=== PATIENT | male | born 1935 | race Caucasian/White ===

== ENCOUNTER 2019-09-18 16:54 | Inpatient (IN) | payer MEDICARE ==
[~2019-09-18 16:54] MED LIST: Iopamidol 370 76% 100 ML VIAL ONE
--- NOTE | 2019-09-18 17:23 | RAD ---
EXAM: CHEST ONE VIEW HISTORY: Chest pain. Right-sided pain. COMPARISON: None FINDINGS: Postsurgical changes related to CABG are noted. The cardiac silhouette and pulmonary vasculature are within normal limits. Linear bibasilar densities are seen which may be related to mild bibasilar atelectasis and/or scarring. No consolidation or pleural fluid is seen. Vascular calcifications are s een in the thoracic aorta with vascular calcifications overlying the expected location of the subclavian and axillary arteries. Osseous structures are intact. IMPRESSION: 1. No acute cardiopulmonary process. 2. Bibasilar atelectasis and/or scarring.
[2019-09-18 18:23] LABS: #Eosinphils 0.1 thou/uL (0.0-0.7); #Lymphocytes 1.5 thou/uL (1.20-3.40); #Monocytes 0.6 thou/uL (0.11-0.59); %Basophils 0.1 % (0.0-1.0); %Eosinophils 1.2 % (0.0-10.0); %Lymphocytes 14.9 % (21.0-51.0); %Monocytes 5.4 % (0.0-10.0); %Neutrophils 78.3 % (42.0-75.0); Hemoglobin 10.3 g/dL (14.0-18.0); Mean Corpuscular HGB CONC 31.9 g/dL (32.0-36.0); Mean Corpuscular Hemoglobin 27.9 pg (27.0-31.0); Mean Corpuscular Volume 87.4 fL (78.0-98.0); Mean Platelet Volume 8.3 fL (7.4-10.4); Platelet Count 217 thou/uL (130-400); Red Blood Cell (RBC) Count 3.71 mill/uL (4.70-6.10); White Blood Cell (WBC) Count 10.2 thou/uL (4.8-10.8)
[2019-09-18] MEDS ORDERED: Ketorolac Tromethamine 30 MG/ML VIAL ONE (18:25)
[2019-09-18] MEDS ORDERED: Morphine 4 MG/ML VIAL ONE ×3 (18:25→20:05)
--- NOTE | 2019-09-18 18:27 | RAD ---
RIGHT TIBIA AND FIBULA TWO VIEWS: 09/18/19 HISTORY: Right sided tib/fib pain. Intramedullary rods stabilizes the distal fibular shaft fracture in place. Also a plate and screws al mihir the distal fibula. There is lucency seen along the proximal fibular shaft which represents a nond isplaced fracture. IMPRESSION: Acute appearing nondisplaced proximal fibular shaft fracture. POS: [facility]
[2019-09-18 18:43] LABS: ALT (SGPT) 36 U/L (8-55); AST (SGOT) 35 U/L (5-34); Albumin 3.2 g/dL (3.4-4.8); Alkaline Phosphatase 123 U/L (40-110); Anion Gap 14 mmol/L (10-20); BUN (Urea Nitrogen) 48 mg/dL (8.4-25.7); Bilirubin, Total 0.5 mg/dL (0.2-1.2); CK (CPK) 28 U/L (30-200); Calc. Creatinine Clearance 0 mL/min (70-130); Calcium 8.4 mg/dL (7.8-10.44); Carbon Dioxide 25 mmol/L (23-31); Chloride 107 mmol/L (98-107); Estimated GFR-MDRD 42; Globulin 3.2 g/dL (2.4-3.5); Glucose 155 mg/dL (83-110); Potassium 4.3 mmol/L (3.5-5.1); Protein, Total 6.4 g/dL (5.8-8.1); Sodium 142 mmol/L (136-145)
[2019-09-18 19:03] LABS: CKMB 1.3 ng/mL (0-6.6)
[2019-09-18] MEDS ORDERED: Enoxaparin Sodium 80 MG/0.8 ML SYRINGE ONE (19:19)
[2019-09-18] MEDS ORDERED: Enoxaparin Sodium 100 MG/ML SYRINGE ONE (19:20)
[2019-09-18] MEDS ORDERED: Aspirin Chewable 81 MG TAB ONE ×2 (19:21→19:22)
--- NOTE | 2019-09-18 19:22 | ULT ---
RIGHT LOWER EXTREMITY VENOUS DOPPLER WITH SPECTRAL ANALYSIS AND COLOR FLOW EVALUATION: 09/18/19 HISTORY: Right lower extremity swelling and pain. Recent right lower extremity surgery. FINDINGS: Lin scale, color flow, Doppler evaluation, with spectral analysis of the right lower extremity venou s structures is performed with T2 imaging. The right lower extremity common femoral, superficial femo ral, popliteal, posterior tibial, most proximal greater saphenous and profunda femoral veins are imag ed. There is increased luminal echogenicity and decreased lumen compressibility as well as diminished cristhian w in the right common femoral vein compatible with nonocclusive DVT. There is decreased lumen tyler sibility and absence of flow within the proximal left superficial femoral vein suggesting an occlusiv e DVT at this level. The remaining visualized deep venous structures left lower extremity demonstrate normal luminal compr essibility and flow. IMPRESSION: 1. Occlusive thrombus proximal right superficial femoral vein with nonocclusive thrombus in the right lower extremity common femoral vein just below the junction of the common femoral vein and grea ter saphenous vein junction. 2. Dr. Lam was aware of these findings, and CT angiogram of the thorax was requested for maria del carmen luation of pulmonary embolus. POS: [facility]
--- NOTE | 2019-09-18 19:36 | CT ---
CT ANGIOGRAM THORAX WITH IV CONTRAST AND 3D RECONSTRUCTIONS: 09/18/19 HISTORY: Right lower extremity DVT. History of fracture right tibia and fibula one month ago post ORIF. Patien t has chest pain and shortness of breath. COMPARISON: None. FINDINGS: There are filling defects seen within bilateral upper and lower lobe subsegmental pulmonary arteries as well as involving a right lower lobe segmental and subsegmental pulmonary arteries compatible with bilateral pulmonary emboli more extensive in the right lower lobe. Postsurgical changes related to CABG are noted. The heart is at the upper limits of normal in size. V ascular calcifications are seen in the coronary arteries as well as involving the thoracic aorta. The thoracic aorta is normal in caliber without evidence of an aortic dissection. Mediastinal structures otherwise have a normal appearance and there is no evidence of lymphadenopathy . A small right pleural effusion and passive atelectasis is present. There is mild consolidation presen t at the left lung base, also likely attributable to atelectasis as opposed to pneumonia or aspirati on pneumonitis. A fluid attenuation cystic structure seen in the posterior aspect dome of the liver m easuring 10 mm with a few additional tiny nodular densities seen within the dome of the liver statist ically likely representing cysts. There is a small calculus seen within the gallbladder lumen. There is calcification of the anterior longitudinal ligament with degenerative changes in the spine. IMPRESSION: 1. Bilateral pulmonary emboli, more extensive in the right lower lobe. 2. Small right pleural effusion and associated passive atelectasis. 3. Parenchymal densities and mild consolidation left lung base probably attributable to atelecta sis as opposed to aspiration pneumonitis or pneumonia. 4. Extensive vascular calcifications. 5. Postsurgical changes related to CABG. 6. Cholelithiasis. 7. Hypodense lesions in the liver likely related to cysts. 8. Too small to characterize and incompletely imaged hypodense lesion superior pole left kidney. 9. Above findings concerning bilateral pulmonary emboli were discussed with Dr. Lam in the E mergency Department on 09/18/19 at 1917 hours. POS: [facility]
[2019-09-18] MEDS ORDERED: Ondansetron ODT 4 MG TAB SL PRN (21:16)
[2019-09-18] MEDS ORDERED: Sodium Chloride 0.9% 1,000 ML IV SCH (21:16)
[2019-09-18] MEDS ORDERED: Acetaminophen 325 MG TAB PO PRN (21:16)
[2019-09-18] MEDS ORDERED: HYDROcodone/Acetaminophen 5/325 mg Tablet PO PRN ×4 (21:16→23:05)
[2019-09-18] MEDS ORDERED: Ondansetron PF 4 MG/2 ML Vial IVP PRN ×2 (21:16→23:05)
--- NOTE | 2019-09-18 22:50 | PDOC.HHP ---
Hospitalist HPI - History of Present Illness Right leg pain and SOB History of Present Illness: Mr. Perez presents with severe right leg pain, found to have a recurring fracture involving the right tib/fib. Deneis any trauma. States the pain was not present yesterday and he woke up with it. He was noted to have swelling which prompted a venous doppler which revealed a DVT involving the right lower leg. He had a CTA chest done demonstrated bilateral PEs. Patient states he has not had any chest pain but has been short of breath since going home from rehab 3-4 weeks ago. States he had been placed on oxygen since he was admitted there and was told he would need oxygen on discharge but it was never arranged. Apparently he had sats of 93% on RA, however patient states he has always been in that range due to COPD. Of note he was previously on Xarelto for afib, started when he lived in [place] however due to cost he stopped it on his own several months ago. Patient reports a history of GI bleeds in the past due to gastritis/gastric ulcers >30 years ago, but did not have any GI bleeding while on Xarelto. He had a grade 1 open right tibia/fibula fracture in 07/2019, with intramedullary nail stabilization of the right tibia and irrigation/debridement of the right open tibia, done by Dr. Hooper on 08/14/19. ED Course: In the ED he had an EKG showing first degree AV Block, HR 97, complete right bundle branch block. Right tib/fib xray showed an acute appearing nondisplaced proximal fibular shaft fracture. Venous doppler of the right leg showed an occlusive thrombus proximal right superficial femoral vein with noncclusive thrombus in the right lower extremity common femoral vein below the junction of the common femoral vein and greater saphenous vein junction. CXR showed no acute cardiopulmonary process. Bibasilar atelectasis and/or scarring present. CTA showed bilateral PEs, more extensive in the right lower lung. Small right pleural effusion with associated passive atelectasis. Parenchymal densities and mild consolidation at the left lung base attributed to atelectasis. Extensive vascular calcifications. Post CABG changes and cholelithiasis. Also noted were hypodense lesions in the liver, felt to be related to cysts and too small to characterize hypodense lesion involving the superior pole of the left kidney. For pain he was given Toradol and a total of 8 mg of Morphine. Also given 324 mg of aspirin, 1 L of normal saline and started on Lovenox 1 mg/ kg. Hospitalist ROS - Review of Systems Constitutional: reports: malaise. denies: fever, chills, sweats, weakness, other Eyes: denies: pain, vision change, conjunctivae inflammation, eyelid inflammation, redness, other ENT: denies: ear pain, ear discharge, nose pain, nose discharge, nose congestion , mouth pain, mouth swelling, throat pain, throat swelling, other Respiratory: reports: shortness of breath (much improved since arriving to ED.) . denies: cough, dry, hemoptysis, SOB with excertion, pleuritic pain, sputum, wheezing, other Cardiovascular: denies: chest pain, palpitations, orthopnea, paroxysmal noc. dyspnea, edema, light headedness, other Gastrointestinal: reports: constipation. denies: nausea, vomiting, abdominal pain, diarrhea, melena, hematochezia, other Genitourinary: denies: dysuria, frequency, incontinence, hematuria, retention, other Musculoskeletal: reports: other (right leg pain and swelling) Skin: denies: rash, lesions, janette, bruising, other Neurological: denies: weakness, numbness, incoordination, change in speech, confusion, seizures, other - Medication Medications: Active Medications Generic Name Dose Route Start Last Admin Trade Name Freq PRN Reason Stop Dose Admin Hydrocodone Bitart/Acetaminophen 2 tab 09/18/19 21:16 09/18/19 21:28 [place] 5/325 PO 09/19/19 07:00 2 tab Q6H PRN Administration Moderate to Severe Pain (6-10) Ondansetron HCl 4 mg 09/18/19 21:16 09/18/19 21:28 Zofran Odt SL 09/19/19 07:00 4 mg Q6H PRN Administration Nausea/Vomiting Hospitalist History - Past Medical History Source: patient, family Cardiac: reports: AFIB (previously on Xarelto but discontinued it on his own), CAD, HTN, [place] Pulmonary: reports: COPD Gastrointestinal: reports: Constipation, GI bleed (more than 30 years ago), Gastritis (in the past) - Past Surgical History Past Surgical History: reports: CABG (x 5 >30 years ago), Other (Surgery for right Tib/Fib fracture >40 years ago, recurring fracture for which he had surgery in 07/2019.) - Family History Family History: reports: no pertinent history - Social History Smoking Status: Former smoker (Quit 3 years ago) Alcohol: reports: None Drugs: reports: none Living Situation: With Family Activity level: uses cane/walker - Exam General Appearance: NAD Eye: PERRL, anicteric sclera ENT: normocephalic atraumatic, no oropharyngeal lesions Neck: supple, no lymphadenopathy Heart: RRR, no murmur, no gallops Respiratory: CTAB, no wheezes, no rales, no ronchi, normal chest expansion, no tachypnea Gastrointestinal: soft, non-tender, non-distended, normal bowel sounds, no guarding, no rigidity Extremities - other findings: right leg swelling, peripheral pulses equal bilaterally Neurological: cranial nerve grossly intact Psychiatric: normal affect, normal behavior, A&O x 3 Hospitalist Results - Labs Result Diagrams: 09/18/19 18:13 09/18/19 18:13 Lab results: WBC 10.2 thou/uL (4.8-10.8) 09/18/19 18:13 Hgb 10.3 g/dL (14.0-18.0) L 09/18/19 18:13 Hct 32.4 % (42.0-52.0) L 09/18/19 18:13 MCV 87.4 fL (78.0-98.0) 09/18/19 18:13 Plt Count 217 thou/uL (130-400) 09/18/19 18:13 Neutrophils % 78.3 % (42.0-75.0) H 09/18/19 18:13 Sodium 142 mmol/L (136-145) 09/18/19 18:13 Potassium 4.3 mmol/L (3.5-5.1) 09/18/19 18:13 Chloride 107 mmol/L (98-107) 09/18/19 18:13 Carbon Dioxide 25 mmol/L (23-31) 09/18/19 18:13 BUN 48 mg/dL (8.4-25.7) H 09/18/19 18:13 Creatinine 1.59 mg/dL (0.7-1.3) H 09/18/19 18:13 Glucose 155 mg/dL (83-110) H 09/18/19 18:13 Calcium 8.4 mg/dL (7.8-10.44) 09/18/19 18:13 Total Bilirubin 0.5 mg/dL (0.2-1.2) 09/18/19 18:13 AST 35 U/L (5-34) H 09/18/19 18:13 ALT 36 U/L (8-55) 09/18/19 18:13 Alkaline Phosphatase 123 U/L (40-110) H 09/18/19 18:13 Creatine Kinase 28 U/L (30-200) L 09/18/19 18:13 CK-MB (CK-2) 1.3 ng/mL (0-6.6) 09/18/19 18:13 Troponin I 0.030 ng/mL (< 0.028) H 09/18/19 18:13 Serum Total Protein 6.4 g/dL (5.8-8.1) 09/18/19 18:13 Albumin 3.2 g/dL (3.4-4.8) L 09/18/19 18:13 - Radiology Interpretation CT scan - chest Status: report reviewed by al Hospitalist H&P A/P - Problem (1) Tibia/fibula fracture, shaft Code(s): S82.209A - UNSP FRACTURE OF SHAFT OF UNSP TIBIA, INIT FOR CLOS FX; S82.409A - UNSP FRACTURE OF SHAFT OF UNSP FIBULA, INIT FOR CLOS FX Status: Chronic (2) Shortness of breath Code(s): R06.02 - SHORTNESS OF BREATH Status: Acute (3) Leg pain Status: Acute (4) Bilateral pulmonary embolism Code(s): I26.99 - OTHER PULMONARY EMBOLISM WITHOUT ACUTE COR PULMONALE Status : Acute (5) Right leg DVT Code(s): I82.401 - ACUTE EMBOLISM AND THOMBOS UNSP DEEP VEINS OF R LOW EXTREM Status: Acute (6) CAD (coronary artery disease) Code(s): I25.10 - ATHSCL HEART DISEASE OF [place] CORONARY ARTERY W/O ANG PCTRS Status: Chronic (7) Hypertension Code(s): I10 - ESSENTIAL (PRIMARY) HYPERTENSION Status: Chronic (8) COPD (chronic obstructive pulmonary disease) Status: Chronic (9) History of atrial fibrillation Code(s): Z86.79 - PERSONAL HISTORY OF OTHER DISEASES OF THE CIRCULATORY SYSTEM Status: Chronic - Plan Plan: Continue Lovenox. Consult pulmonary. Continuous cardiac monitoring. Monitor BP. Ortho consult. Resume home meds once verified. Maintenance fluids. CODE STATUS FULL. Surrogate decision maker is his son,
[2019-09-18] MEDS ORDERED: Ondansetron ODT 4 MG TAB PO PRN (23:05)
[2019-09-18] MEDS: Sodium Chloride 0.9% 1,000 ML IV SCH (23:24)
[2019-09-19 04:58] LABS: #Basophils 0.1 thou/uL (0.0-0.2); #Eosinphils 0.3 thou/uL (0.0-0.7); #Lymphocytes 1.7 thou/uL (1.20-3.40); #Monocytes 0.7 thou/uL (0.11-0.59); %Basophils 0.9 % (0.0-1.0); %Lymphocytes 21.8 % (21.0-51.0); %Monocytes 8.6 % (0.0-10.0); %Neutrophils 64.8 % (42.0-75.0); Hemoglobin 8.8 g/dL (14.0-18.0); Mean Corpuscular HGB CONC 31.1 g/dL (32.0-36.0); Mean Corpuscular Hemoglobin 27.3 pg (27.0-31.0); Mean Corpuscular Volume 87.6 fL (78.0-98.0); Platelet Count 180 thou/uL (130-400); RBC Distribution Width 19.9 % (11.5-14.5); Red Blood Cell (RBC) Count 3.21 mill/uL (4.70-6.10); White Blood Cell (WBC) Count 7.7 thou/uL (4.8-10.8)
[2019-09-19 05:18] LABS: Anion Gap 11 mmol/L (10-20); BUN (Urea Nitrogen) 40 mg/dL (8.4-25.7); Calc. Creatinine Clearance 52 mL/min (70-130); Calcium 7.8 mg/dL (7.8-10.44); Carbon Dioxide 26 mmol/L (23-31); Chloride 109 mmol/L (98-107); Estimated GFR-MDRD 55; Glucose 88 mg/dL (83-110); Potassium 4.3 mmol/L (3.5-5.1); Sodium 142 mmol/L (136-145)
[2019-09-19] MEDS ORDERED: FLU VACC TS2019-20(65YR UP)/PF 180 MCG/0.5 ML SYRINGE IM ONE (09:00)
[2019-09-19] MEDS ORDERED: Prevnar 13-Val Conj/PF 0.5 ML SYRINGE IM ONE (09:00)
[2019-09-19] MEDS ORDERED: Enoxaparin Sodium 80 MG/0.8 ML SYRINGE SC SCH (09:00)
[2019-09-19] MEDS: Famotidine/PF 20 mg/2ml Vial SLOW IVP SCH (09:24)
--- NOTE | 2019-09-19 09:47 | PDOC.HOSPP ---
- Subjective Encounter Date: 09/19/19 Encounter Time: 13:30 Subjective: Severe pain from right leg and knee. Some SOB. Minimal chest pain. - Objective Vital Signs & Weight: Vital Signs (12 hours) Temp Pulse Resp BP Pulse Ox 09/19/19 08:30 98.3 F 57 L 20 146/60 H 95 09/19/19 03:41 97.7 F 56 L 18 133/75 96 09/19/19 02:33 99 Weight Weight 183 lb I&O: 09/18/19 09/19/19 09/20/19 06:59 06:59 06:59 Intake Total 780 Balance 780 Result Diagrams: 09/19/19 04:50 09/19/19 04:50 Hospitalist ROS - Review of Systems Constitutional: denies: fever, chills Respiratory: reports: shortness of breath. denies: cough Cardiovascular: reports: chest pain. denies: palpitations, orthopnea Gastrointestinal: denies: nausea, vomiting, abdominal pain Musculoskeletal: reports: leg pain - Medication Medications: Active Medications Generic Name Dose Route Start Last Admin Trade Name Freq PRN Reason Stop Dose Admin Hydrocodone Bitart/Acetaminophen 2 tab 09/18/19 23:05 09/19/19 09:22 [place] 5/325 PO 2 tab Q6H PRN Administration Severe Pain (7-10) Enoxaparin Sodium 80 mg 09/19/19 09:00 09/19/19 09:24 Lovenox SC 80 mg 0900 PRISCILLA Administration Famotidine 20 mg 09/19/19 09:00 09/19/19 09:24 Pepcid SLOW IVP 20 mg QAM PRISCILLA Administration Sodium Chloride 1,000 mls @ 50 mls/hr 09/18/19 23:15 09/18/19 23:24 Normal Saline 0.9% IV 1,000 mls .Q20H PRISCILLA Administration - Exam General Appearance: NAD Heart: RRR, no murmur, no gallops, no rubs Respiratory: CTAB, no wheezes, no rales, no ronchi Gastrointestinal: soft, non-tender, non-distended, normal bowel sounds, no palpable masses Psychiatric: normal affect, normal behavior, A&O x 3 Hosp A/P (1) Bilateral pulmonary embolism Code(s): I26.99 - OTHER PULMONARY EMBOLISM WITHOUT ACUTE COR PULMONALE Status : Acute (2) Right leg DVT Code(s): I82.401 - ACUTE EMBOLISM AND THOMBOS UNSP DEEP VEINS OF R LOW EXTREM Status: Acute (3) Tibia/fibula fracture, shaft Code(s): S82.209A - UNSP FRACTURE OF SHAFT OF UNSP TIBIA, INIT FOR CLOS FX; S82.409A - UNSP FRACTURE OF SHAFT OF UNSP FIBULA, INIT FOR CLOS FX Status: Acute (4) COPD (chronic obstructive pulmonary disease) Status: Chronic (5) CAD (coronary artery disease) Code(s): I25.10 - ATHSCL HEART DISEASE OF [place] CORONARY ARTERY W/O ANG PCTRS Status: Chronic (6) Hypertension Code(s): I10 - ESSENTIAL (PRIMARY) HYPERTENSION Status: Chronic (7) History of atrial fibrillation Code(s): Z86.79 - PERSONAL HISTORY OF OTHER DISEASES OF THE CIRCULATORY SYSTEM Status: Chronic (8) Anemia Code(s): D64.9 - ANEMIA, UNSPECIFIED Status: Acute - Plan On full dose Lovenox, pulmonology consulted Ortho consulted for acute non-displaced fibular fracture proximal to previous fracture that was fixed Anemia with drop, will monitor closely on Lovenox
[2019-09-19] MEDS: Sodium Chloride 0.9% 1,000 ML IV SCH (19:15)
[2019-09-19] MEDS ORDERED: Nitroglycerin 0.4 MG TAB (25 Tab Bottle) PO PRN (20:00)
[2019-09-19] MEDS: Morphine 4 MG/ML VIAL SLOW IVP PRN (20:03)
[2019-09-19] MEDS ORDERED: Lidocaine 2% Viscous Solution 10 ML, Aluminum & Magnesium Hydroxide 30 ML SSW SCH (20:15)
[2019-09-19] MEDS: Apixaban 5 MG TAB PO SCH (20:34)
[2019-09-19 20:45] LABS: Hemoglobin 8.9 g/dL (14.0-18.0)
[2019-09-19 21:31] LABS: CKMB 1.6 ng/mL (0-6.6)
[2019-09-20] MEDS: HYDROcodone/Acetaminophen 7.5/325 mg Tablet PO PRN (00:01)
[2019-09-20] MEDS ORDERED: Lorazepam 0.5 MG TAB PO PRN (00:36)
[2019-09-20 03:17] LABS: CKMB 1.8 ng/mL (0-6.6)
[2019-09-20 05:05] LABS: #Eosinphils 0.3 thou/uL (0.0-0.7); #Lymphocytes 1.1 thou/uL (1.20-3.40); #Monocytes 0.7 thou/uL (0.11-0.59); #Neutrophils 4.6 thou/uL (1.40-6.50); %Basophils 0.5 % (0.0-1.0); %Eosinophils 4.4 % (0.0-10.0); %Lymphocytes 16.5 % (21.0-51.0); %Monocytes 9.8 % (0.0-10.0); %Neutrophils 68.9 % (42.0-75.0); Hemoglobin 8.9 g/dL (14.0-18.0); Mean Corpuscular HGB CONC 31.2 g/dL (32.0-36.0); Mean Corpuscular Hemoglobin 27.5 pg (27.0-31.0); Mean Corpuscular Volume 88.2 fL (78.0-98.0); Mean Platelet Volume 8.3 fL (7.4-10.4); Platelet Count 173 thou/uL (130-400); RBC Distribution Width 19.6 % (11.5-14.5); Red Blood Cell (RBC) Count 3.25 mill/uL (4.70-6.10); White Blood Cell (WBC) Count 6.6 thou/uL (4.8-10.8)
[2019-09-20 05:30] LABS: Anion Gap 10 mmol/L (10-20); BUN (Urea Nitrogen) 22 mg/dL (8.4-25.7); Calc. Creatinine Clearance 71 mL/min (70-130); Carbon Dioxide 25 mmol/L (23-31); Chloride 111 mmol/L (98-107); Estimated GFR-MDRD 79; Glucose 93 mg/dL (83-110); Potassium 4.7 mmol/L (3.5-5.1); Sodium 141 mmol/L (136-145)
[2019-09-20] MEDS ORDERED: traZODone HCl 50 MG TAB PO PRN (09:01)
--- NOTE | 2019-09-20 09:05 | PDOC.HOSPP ---
- Subjective Encounter Date: 09/20/19 Encounter Time: 12:40 Subjective: Patient with significant chest pain yesterday evening. EKG unchanged at that time and neg trop. Appears to be due to the pulmonary emboli. Improved today. Lots of pain in leg when tries to get up with PT. - Objective Vital Signs & Weight: Vital Signs (12 hours) Temp Pulse Resp BP Pulse Ox 09/20/19 07:52 98.9 F 77 20 170/72 H 95 09/20/19 03:27 98.3 F 80 14 176/60 H 93 L 09/19/19 23:00 86 178/70 H Weight Admit Weight 180 lb Weight 183 lb I&O: 09/19/19 09/20/19 09/21/19 06:59 06:59 06:59 Intake Total 780 Balance 780 Result Diagrams: 09/20/19 04:34 09/20/19 04:34 Hospitalist ROS - Review of Systems Constitutional: denies: fever, chills Respiratory: reports: shortness of breath. denies: cough Cardiovascular: reports: chest pain. denies: palpitations, orthopnea Gastrointestinal: denies: nausea, vomiting, abdominal pain Musculoskeletal: reports: leg pain - Medication Medications: Active Medications Generic Name Dose Route Start Last Admin Trade Name Freq PRN Reason Stop Dose Admin Hydrocodone Bitart/Acetaminophen 2 tab 09/19/19 14:08 09/20/19 00:01 [place] 7.5/325 PO 2 tab Q4H PRN Administration Moderate Pain (4-6) Apixaban 10 mg 09/19/19 21:00 09/19/19 20:34 Eliquis PO 10 mg BID PRISCILLA Administration Famotidine 20 mg 09/19/19 09:00 09/19/19 09:24 Pepcid SLOW IVP 20 mg QAM PRSICILLA Administration Lorazepam 0.5 mg 09/20/19 00:36 09/20/19 00:45 Ativan PO 0.5 mg Q4H PRN Administration Anxiety Morphine Sulfate 4 mg 09/19/19 14:08 09/19/19 20:03 Morphine SLOW IVP 4 mg Q4H PRN Administration Severe Pain (7-10) Nitroglycerin 0.4 mg 09/19/19 20:00 09/19/19 20:19 Nitrostat PO 0.4 mg Q5MIN PRN Administration Chest Pain - Exam General Appearance: NAD Eye: anicteric sclera ENT: moist mucosa Heart: RRR, no murmur, no gallops, no rubs Respiratory: CTAB, no wheezes, no rales, no ronchi Gastrointestinal: soft, non-tender, non-distended, normal bowel sounds Extremities: no edema Extremities - other findings: RLE TTP, painful with movement, no redness/ infection Psychiatric: normal affect, normal behavior, A&O x 3 Hosp A/P (1) Bilateral pulmonary embolism Code(s): I26.99 - OTHER PULMONARY EMBOLISM WITHOUT ACUTE COR PULMONALE Status : Acute (2) Right leg DVT Code(s): I82.401 - ACUTE EMBOLISM AND THOMBOS UNSP DEEP VEINS OF R LOW EXTREM Status: Acute (3) Tibia/fibula fracture, shaft Code(s): S82.209A - UNSP FRACTURE OF SHAFT OF UNSP TIBIA, INIT FOR CLOS FX; S82.409A - UNSP FRACTURE OF SHAFT OF UNSP FIBULA, INIT FOR CLOS FX Status: Acute (4) COPD (chronic obstructive pulmonary disease) Status: Chronic (5) CAD (coronary artery disease) Code(s): I25.10 - ATHSCL HEART DISEASE OF [place] CORONARY ARTERY W/O ANG PCTRS Status: Chronic (6) Hypertension Code(s): I10 - ESSENTIAL (PRIMARY) HYPERTENSION Status: Chronic (7) History of atrial fibrillation Code(s): Z86.79 - PERSONAL HISTORY OF OTHER DISEASES OF THE CIRCULATORY SYSTEM Status: Chronic (8) Anemia Code(s): D64.9 - ANEMIA, UNSPECIFIED Status: Acute - Plan On full dose Lovenox, pulmonology consulted Ortho consulted for acute non-displaced fibular fracture proximal to previous fracture that was fixed, they have made PT recommendations, new fib fracture is stable, will need rehab Anemia with drop, will monitor closely on Lovenox, stable today Chest pain last night likely due to PE, repeat EKG ok and troponin stable BP elevated so will restart home meds Can likely go to rehab/SNF in 1-2 days if approved.
--- NOTE | 2019-09-20 09:16 | RAD ---
CHEST 1 VIEW: INDICATION: History of left-sided chest pain. COMPARISON: Prior exam dated 09/18/2019. FINDINGS: There are scattered areas of subsegmental volume loss which persist. There is a suggestion of new ti ny bilateral pleural effusions. Heart size is normal. Post CABG change is similar-appearing. No ac [place] osseous abnormality is evident. IMPRESSION: 1. More linear-type opacities involving both lung bases in the right mid lung suspicious for areas o f subsegmental volume loss. 2. Tiny bilateral pleural effusions are new. 3. Continued followup is recommended. On the followup radiograph, improved inspiration may be helpf ul for further evaluation. POS: [facility]
[2019-09-20] MEDS: Famotidine/PF 20 mg/2ml Vial SLOW IVP SCH (09:31)
[2019-09-20] MEDS: Apixaban 5 MG TAB PO SCH ×2 (09:31→20:50)
--- NOTE | 2019-09-20 09:39 | CON ---
DATE OF CONSULTATION: HISTORY OF PRESENT ILLNESS: Kashmir Seymour is a pleasant gentleman, who had a right tibia-fibula fracture. He has had a recurrent fracture. He is now found to have a DVT, and a CT angiogram showing pulmonary emboli. We were consulted because of the above. PAST MEDICAL HISTORY: Remarkable for; 1. Atrial fibrillation, previously on Xarelto, but stops for cost reasons. 2. History of ulcer in the past many years ago. 3. History of open reduction and internal fixation of tibia and fibula fracture in July of this year. 4. History of right bundle-branch block. 5. Deconditioning. 6. History of coronary artery bypass grafting 30 years ago. FAMILY HISTORY: Negative for lung disease in early age. SOCIAL HISTORY: Quit smoking 3 years ago. He is not a daily drinker. REVIEW OF SYSTEMS: Otherwise negative . PHYSICAL EXAMINATION: GENERAL: He is in no distress. VITAL SIGNS: He is afebrile. Heart rate is 80, respiratory rate is 19, oximetry is 95% on 1 L cannula, blood pressure 154/63. HEENT: Pupils are equal. Sclerae are anicteric. NECK: Supple. No lymphadenopathy. LUNGS: Clear. HEART: Regular rhythm. No S3. ABDOMEN: Soft and nontender. EXTREMITIES: Without clubbing, cyanosis, or edema. NEUROLOGIC: Grossly nonfocal. LABORATORY DATA: White count 7.7, hemoglobin 8.8, platelets 180. Electrolytes are normal. BUN is 40, creatinine is 1.25. IMPRESSION: 1. Thromboembolic disease, likely secondary to inactivity. 2. Nondisplaced fibula fracture, that will not require surgery. PLAN: Anticoagulation. He can be switched to Eliquis and hopefully discharge soon. Encouraged him to start some type of exercise program once he gets clearance from Orthopedic surgery. He tells me he has been told he can weight bear. Job ID: [id number]
[2019-09-20] MEDS: Morphine 4 MG/ML VIAL SLOW IVP PRN ×2 (11:24→18:05)
--- NOTE | 2019-09-20 11:53 | PRG ---
DATE OF SERVICE: 09/20/2019 SUBJECTIVE: The patient is having some left-sided chest pain which is constant, otherwise he is breathing well. OBJECTIVE: VITAL SIGNS: Temperature 98.9, pulse 77, respirations 20, O2 saturation 95% on 2 L, and blood pressure 170/72. HEENT: Unremarkable. NECK: No adenopathy or JVD. CHEST: Fairly clear anteriorly. CARDIAC: S1 and S2, regular. ABDOMEN: Soft. EXTREMITIES: Pain along his right leg where he has had previous fractures. ASSESSMENT: 1. Bilateral pulmonary emboli. 2. Right lower extremity deep venous thrombosis. PLAN: He is currently being managed with Eliquis. He is now no longer hypoxic. He needs to be anticoagulated for at least 6 months. His dose of Eliquis should be reduced to 5 mg b.i.d. after 1 week of the 10 mg twice daily. No further Pulmonary recommendations. Job ID: [id number]
[2019-09-20] MEDS ORDERED: Metoprolol Tartrate 100 MG TAB PO SCH (14:00)
[2019-09-20] MEDS ORDERED: Losartan 25 MG TAB PO SCH (14:00)
[2019-09-20] MEDS ORDERED: Furosemide 20 MG TAB PO SCH (14:00)
[2019-09-20] MEDS: Mometasone/Formoterol 120 PUFF INHALER INH SCH (19:25)
[2019-09-20] MEDS: Lorazepam 2 MG/ML VIAL SLOW IVP PRN (20:49)
[2019-09-20] MEDS: Amiodarone 200 MG TAB PO SCH (20:50)
[2019-09-20] MEDS: Metoprolol Tartrate 100 MG TAB PO SCH (20:51)
[2019-09-21] MEDS: HYDROcodone/Acetaminophen 7.5/325 mg Tablet PO PRN (00:50)
[2019-09-21] MEDS: Betamethasone Val 0.1% Lotion 60 ML BOT TOP SCH ×3 (04:00→19:58)
[2019-09-21] MEDS: Lorazepam 2 MG/ML VIAL SLOW IVP PRN ×2 (05:01→11:17)
[2019-09-21] MEDS: Mometasone/Formoterol 120 PUFF INHALER INH SCH ×2 (06:36→18:59)
[2019-09-21] MEDS: Apixaban 5 MG TAB PO SCH ×2 (08:59→19:30)
[2019-09-21] MEDS: Metoprolol Tartrate 100 MG TAB PO SCH ×2 (08:59→19:29)
[2019-09-21] MEDS: Allopurinol 100 MG TAB PO SCH (09:00)
[2019-09-21] MEDS ORDERED: Losartan 25 MG TAB PO SCH (09:00)
[2019-09-21] MEDS: Furosemide 20 MG TAB PO SCH (09:00)
[2019-09-21] MEDS: Famotidine/PF 20 mg/2ml Vial SLOW IVP SCH (09:00)
[2019-09-21] MEDS: Amiodarone 200 MG TAB PO SCH ×2 (09:00→19:29)
[2019-09-21] MEDS: Tamsulosin HCl 0.4 MG CAP PO SCH (09:00)
--- NOTE | 2019-09-21 11:05 | PDOC.HOSPP ---
- Subjective Encounter Date: 09/21/19 (f/u PE) Encounter Time: 11:03 Subjective: Pt c/o pain in his right leg, chest, and abdomen - states this has been ongoing. Denies any n/v. RN reports pt has sundowning, and no bm in past 3 days - Objective Vital Signs & Weight: Vital Signs (12 hours) Temp Pulse Resp BP Pulse Ox 09/21/19 06:36 63 12 09/21/19 03:49 97.8 F 63 18 158/69 H 96 09/20/19 23:20 65 164/73 H Weight Admit Weight 180 lb Weight 183 lb Result Diagrams: 09/20/19 04:34 09/20/19 04:34 EKG Reviewed by me: Yes (tele - sinus 60-90's) Hospitalist ROS - Medication Medications: Active Medications Generic Name Dose Route Start Last Admin Trade Name Freq PRN Reason Stop Dose Admin Hydrocodone Bitart/Acetaminophen 2 tab 09/19/19 14:08 09/21/19 00:50 [place] 7.5/325 PO 2 tab Q4H PRN Administration Moderate Pain (4-6) Allopurinol 100 mg 09/21/19 09:00 09/21/19 09:00 Zyloprim PO 100 mg DAILY PRISCILLA Administration Amiodarone HCl 200 mg 09/20/19 21:00 09/21/19 09:00 Cordarone PO 200 mg BID PRISCILLA Administration Apixaban 10 mg 09/19/19 21:00 09/21/19 08:59 Eliquis PO 10 mg BID PRISCILLA Administration Betamethasone Valerate 0 ml 09/20/19 21:00 09/21/19 04:00 Betamethasone Valerate TOP Not Given BID PRISCILLA Furosemide 20 mg 09/21/19 09:00 09/21/19 09:00 Lasix PO 20 mg DAILY PRISCILLA Administration Lorazepam 0.5 mg 09/20/19 00:36 09/20/19 00:45 Ativan PO 0.5 mg Q4H PRN Administration Anxiety Lorazepam 0.5 mg 09/20/19 19:41 09/21/19 05:01 Ativan SLOW IVP 0.5 mg Q6H PRN Administration Anxiety/Agitation Losartan Potassium 25 mg 09/21/19 09:00 09/21/19 09:00 Cozaar PO 25 mg DAILY PRISCILLA Administration Metoprolol Tartrate 100 mg 09/20/19 21:00 09/21/19 08:59 Lopressor PO 100 mg BID PRISCILLA Administration Mometasone Furoate/Formoterol Fumar 1 puff 09/20/19 18:30 09/21/19 06:36 Dulera 200 Mcg/5 Mcg Inhaler INH 1 puff BID-RT PRISCILLA Administration Morphine Sulfate 4 mg 09/19/19 14:08 09/20/19 18:05 Morphine SLOW IVP 4 mg Q4H PRN Administration Severe Pain (7-10) Nitroglycerin 0.4 mg 09/19/19 20:00 09/19/19 20:19 Nitrostat PO 0.4 mg Q5MIN PRN Administration Chest Pain Tamsulosin HCl 0.4 mg 09/21/19 09:00 09/21/19 09:00 Flomax PO 0.4 mg DAILY PRISCILLA Administration - Exam General Appearance: NAD General - other findings: appears uncomfortable with transitioning from sitting to supine in bed Heart: RRR, no murmur Respiratory: CTAB, no wheezes, no rales, no ronchi Gastrointestinal: soft, non-distended, normal bowel sounds Gastrointestinal - other findings: ttp in LUQ without palpable abnormality, abd soft Extremities - other findings: RLE in boot Psychiatric - other findings: blunted affect Hosp A/P (1) Bilateral pulmonary embolism Code(s): I26.99 - OTHER PULMONARY EMBOLISM WITHOUT ACUTE COR PULMONALE Status : Acute (2) Constipation Code(s): K59.00 - CONSTIPATION, UNSPECIFIED Status: Acute Qualifiers: Constipation type: unspecified constipation type Qualified Code(s): K59.00 - Constipation, unspecified (3) Anemia Code(s): D64.9 - ANEMIA, UNSPECIFIED Status: Acute Qualifiers: Anemia type: unspecified type Qualified Code(s): D64.9 - Anemia, unspecified (4) Tibia/fibula fracture, shaft Code(s): S82.209A - UNSP FRACTURE OF SHAFT OF UNSP TIBIA, INIT FOR CLOS FX; S82.409A - UNSP FRACTURE OF SHAFT OF UNSP FIBULA, INIT FOR CLOS FX Status: Acute Qualifiers: Encounter type: subsequent encounter Laterality: right (5) CAD (coronary artery disease) Code(s): I25.10 - ATHSCL HEART DISEASE OF [place] CORONARY ARTERY W/O ANG PCTRS Status: Chronic (6) COPD (chronic obstructive pulmonary disease) Status: Chronic (7) Hypertension Code(s): I10 - ESSENTIAL (PRIMARY) HYPERTENSION Status: Chronic - Plan - PE - on eliquis, change to 5 mg BID on 3 Sep as pt will have completed 1 week of 10 mg BID - continue PT/OT - continue managing pain - add scheduled bowel meds and monitor - HTN - not optimally controlled, will check labs and increase losartan - - has prn ativan to use. I'm hesitant to add seroquel as the pt is on amiodarone dvt prophy - fully anticoagulated gi prophy - change to oral famotidine once daily code status full reviewed plan of care carina patient and RN, no questions or further needs at end of eval pt remains at high risk anticipate pt will require snf or rehab as he lives with brother and unable to meet ADL's
[2019-09-21] MEDS ORDERED: Docusate 100 MG CAP PO SCH (11:15)
[2019-09-21] MEDS: Morphine 4 MG/ML VIAL SLOW IVP PRN (11:18)
[2019-09-21 12:08] LABS: #Basophils 0.1 thou/uL (0.0-0.2); #Eosinphils 0.3 thou/uL (0.0-0.7); #Lymphocytes 0.9 thou/uL (1.20-3.40); #Monocytes 0.7 thou/uL (0.11-0.59); #Neutrophils 9.1 thou/uL (1.40-6.50); %Basophils 0.5 % (0.0-1.0); %Eosinophils 3.1 % (0.0-10.0); %Lymphocytes 8.1 % (21.0-51.0); %Monocytes 6.4 % (0.0-10.0); %Neutrophils 81.9 % (42.0-75.0); Hemoglobin 11.2 g/dL (14.0-18.0); Mean Corpuscular HGB CONC 30.4 g/dL (32.0-36.0); Mean Corpuscular Hemoglobin 27.4 pg (27.0-31.0); Mean Corpuscular Volume 89.9 fL (78.0-98.0); Platelet Count 224 thou/uL (130-400); RBC Distribution Width 19.8 % (11.5-14.5); Red Blood Cell (RBC) Count 4.08 mill/uL (4.70-6.10); White Blood Cell (WBC) Count 11.1 thou/uL (4.8-10.8)
[2019-09-21 12:32] LABS: Anion Gap 16 mmol/L (10-20); BUN (Urea Nitrogen) 18 mg/dL (8.4-25.7); Calc. Creatinine Clearance 71 mL/min (70-130); Calcium 8.7 mg/dL (7.8-10.44); Carbon Dioxide 21 mmol/L (23-31); Chloride 104 mmol/L (98-107); Estimated GFR-MDRD 79; Glucose 139 mg/dL (83-110); Potassium 3.8 mmol/L (3.5-5.1); Sodium 137 mmol/L (136-145)
[2019-09-21] MEDS: Docusate 100 MG CAP PO SCH (19:30)
[2019-09-21] MEDS: Losartan 25 MG TAB PO SCH (19:30)
[2019-09-21] MEDS: Temazepam 15 MG CAP PO PRN (19:31)
[2019-09-22 05:06] LABS: #Eosinphils 0.5 thou/uL (0.0-0.7); #Lymphocytes 1.2 thou/uL (1.20-3.40); #Monocytes 0.8 thou/uL (0.11-0.59); #Neutrophils 7.3 thou/uL (1.40-6.50); %Basophils 0.3 % (0.0-1.0); %Eosinophils 5.4 % (0.0-10.0); %Lymphocytes 12.2 % (21.0-51.0); %Monocytes 8.1 % (0.0-10.0); Hemoglobin 10.1 g/dL (14.0-18.0); Mean Corpuscular HGB CONC 31.8 g/dL (32.0-36.0); Mean Corpuscular Hemoglobin 27.9 pg (27.0-31.0); Mean Corpuscular Volume 87.5 fL (78.0-98.0); Platelet Count 226 thou/uL (130-400); RBC Distribution Width 19.9 % (11.5-14.5); Red Blood Cell (RBC) Count 3.62 mill/uL (4.70-6.10); White Blood Cell (WBC) Count 9.8 thou/uL (4.8-10.8)
[2019-09-22 05:25] LABS: Anion Gap 12 mmol/L (10-20); BUN (Urea Nitrogen) 18 mg/dL (8.4-25.7); Calc. Creatinine Clearance 63 mL/min (70-130); Calcium 8.5 mg/dL (7.8-10.44); Carbon Dioxide 29 mmol/L (23-31); Chloride 104 mmol/L (98-107); Estimated GFR-MDRD 67; Glucose 102 mg/dL (83-110); Potassium 3.6 mmol/L (3.5-5.1); Sodium 141 mmol/L (136-145)
[2019-09-22] MEDS: Mometasone/Formoterol 120 PUFF INHALER INH SCH ×2 (06:23→18:39)
[2019-09-22] MEDS ORDERED: Polyethylene Glycol 3350 17 GM Packet PO SCH (09:00)
[2019-09-22] MEDS: Famotidine 20 MG TAB PO SCH (10:33)
[2019-09-22] MEDS: Apixaban 5 MG TAB PO SCH ×2 (10:34→20:58)
[2019-09-22] MEDS: Tamsulosin HCl 0.4 MG CAP PO SCH (10:34)
[2019-09-22] MEDS: Allopurinol 100 MG TAB PO SCH (10:34)
[2019-09-22] MEDS: Losartan 25 MG TAB PO SCH ×2 (10:34→20:58)
[2019-09-22] MEDS: Docusate 100 MG CAP PO SCH (10:34)
[2019-09-22] MEDS: Furosemide 20 MG TAB PO SCH (10:34)
[2019-09-22] MEDS: Metoprolol Tartrate 100 MG TAB PO SCH ×2 (10:34→20:58)
[2019-09-22] MEDS: Amiodarone 200 MG TAB PO SCH ×2 (11:06→20:58)
[2019-09-22] MEDS: Betamethasone Val 0.1% Lotion 60 ML BOT TOP SCH ×2 (11:06→21:25)
[2019-09-22] MEDS ORDERED: Docusate 100 MG CAP PO PRN (12:20)
[2019-09-22] MEDS ORDERED: Polyethylene Glycol 3350 17 GM Packet PO PRN (12:20)
--- NOTE | 2019-09-22 12:22 | PDOC.HOSPP ---
- Subjective Encounter Date: 09/22/19 (f/u PE) Encounter Time: 12:20 Subjective: Pt reports his breathing is better, appetite better. He c/o pain associated with right heel wound. He does not want scheduled bowel meds, reports a challenge with this at rehab prior to this admission. - Objective Vital Signs & Weight: Vital Signs (12 hours) Temp Pulse Resp BP Pulse Ox 09/22/19 12:00 97.9 F 65 18 121/58 L 96 09/22/19 07:55 97.8 F 65 18 139/82 95 09/22/19 06:23 52 L 12 09/22/19 03:31 96.9 F L 52 L 16 132/60 100 Weight Admit Weight 180 lb Weight 183 lb Result Diagrams: 09/22/19 04:22 09/22/19 04:22 EKG Reviewed by me: Yes (tele - sinus 50-60's, BBB) Hospitalist ROS - Medication Medications: Active Medications Generic Name Dose Route Start Last Admin Trade Name Freq PRN Reason Stop Dose Admin Hydrocodone Bitart/Acetaminophen 2 tab 09/19/19 14:08 09/21/19 00:50 [place] 7.5/325 PO 2 tab Q4H PRN Administration Moderate Pain (4-6) Allopurinol 100 mg 09/21/19 09:00 09/22/19 10:34 Zyloprim PO 100 mg DAILY PRISCILLA Administration Amiodarone HCl 200 mg 09/20/19 21:00 09/22/19 11:06 Cordarone PO 200 mg BID PRISCILLA Administration Apixaban 10 mg 09/19/19 21:00 09/22/19 10:34 Eliquis PO 10 mg BID PRISCILLA Administration Betamethasone Valerate 0 ml 09/20/19 21:00 09/22/19 11:06 Betamethasone Valerate TOP Not Given BID PRISCILLA Docusate Sodium 100 mg 09/21/19 21:00 09/22/19 10:34 Colace PO 100 mg BID PRISCILLA Administration Famotidine 20 mg 09/22/19 09:00 09/22/19 10:33 Pepcid PO 20 mg DAILY PRISCILLA Administration Furosemide 20 mg 09/21/19 09:00 09/22/19 10:34 Lasix PO 20 mg DAILY PRISCILLA Administration Lorazepam 0.5 mg 09/20/19 00:36 09/20/19 00:45 Ativan PO 0.5 mg Q4H PRN Administration Anxiety Lorazepam 0.5 mg 09/20/19 19:41 09/21/19 11:17 Ativan SLOW IVP 0.5 mg Q6H PRN Administration Anxiety/Agitation Losartan Potassium 25 mg 09/21/19 21:00 09/22/19 10:34 Cozaar PO 25 mg BID PRISCILLA Administration Metoprolol Tartrate 100 mg 09/20/19 21:00 09/22/19 10:34 Lopressor PO 100 mg BID PRISCILLA Administration Mometasone Furoate/Formoterol Fumar 1 puff 09/20/19 18:30 09/22/19 06:23 Dulera 200 Mcg/5 Mcg Inhaler INH 1 puff BID-RT PRISCILLA Administration Morphine Sulfate 4 mg 09/19/19 14:08 09/21/19 11:18 Morphine SLOW IVP 4 mg Q4H PRN Administration Severe Pain (7-10) Nitroglycerin 0.4 mg 09/19/19 20:00 09/19/19 20:19 Nitrostat PO 0.4 mg Q5MIN PRN Administration Chest Pain Polyethylene Glycol 17 gm 09/22/19 09:00 09/22/19 10:36 Miralax PO 17 gm DAILY PRISCILLA Administration Tamsulosin HCl 0.4 mg 09/21/19 09:00 09/22/19 10:34 Flomax PO 0.4 mg DAILY PRISCILLA Administration Temazepam 30 mg 09/20/19 09:01 09/21/19 19:31 Restoril PO 30 mg HS PRN Administration Insomnia - Exam General Appearance: NAD Heart: RRR, no murmur Respiratory: no wheezes, no rales, no ronchi Respiratory - other findings: fair air movement Gastrointestinal: soft, non-tender, non-distended, normal bowel sounds Skin - other findings: right heel wound - currently bandaged Musculoskeletal: normal tone Hosp A/P (1) Bilateral pulmonary embolism Code(s): I26.99 - OTHER PULMONARY EMBOLISM WITHOUT ACUTE COR PULMONALE Status : Acute (2) Constipation Code(s): K59.00 - CONSTIPATION, UNSPECIFIED Status: Acute Qualifiers: Constipation type: unspecified constipation type Qualified Code(s): K59.00 - Constipation, unspecified (3) Anemia Code(s): D64.9 - ANEMIA, UNSPECIFIED Status: Acute Qualifiers: Anemia type: unspecified type Qualified Code(s): D64.9 - Anemia, unspecified (4) Tibia/fibula fracture, shaft Code(s): S82.209A - UNSP FRACTURE OF SHAFT OF UNSP TIBIA, INIT FOR CLOS FX; S82.409A - UNSP FRACTURE OF SHAFT OF UNSP FIBULA, INIT FOR CLOS FX Status: Acute Qualifiers: Encounter type: subsequent encounter Laterality: right (5) CAD (coronary artery disease) Code(s): I25.10 - ATHSCL HEART DISEASE OF [place] CORONARY ARTERY W/O ANG PCTRS Status: Chronic (6) COPD (chronic obstructive pulmonary disease) Status: Chronic (7) Hypertension Code(s): I10 - ESSENTIAL (PRIMARY) HYPERTENSION Status: Chronic - Plan PE - on eliquis, change to 5 mg BID on 3 Sep as pt will have completed 1 week of 10 mg BID - continue PT/OT - continue managing pain HTN - improved today - continue higher dose of losartan - received restoril last night with improvement per nurse today right heel wound - continue wound care bowel meds - change to prn per patient request. I discussed with him concern that pain meds will cause constipation - he still desires no scheduled bowel meds dvt prophy - fully anticoagulated gi prophy - famotidine once daily code status full reviewed plan of care with patient, no questions or further needs at end of eval pt remains at high risk anticipate pt will require snf or rehab as he lives with brother and unable to meet ADL's
[2019-09-22] MEDS: HYDROcodone/Acetaminophen 7.5/325 mg Tablet PO PRN (13:39)
[2019-09-22] MEDS: Temazepam 15 MG CAP PO PRN (20:58)
[2019-09-23] MEDS: HYDROcodone/Acetaminophen 7.5/325 mg Tablet PO PRN ×3 (00:20→18:04)
[2019-09-23 04:51] LABS: #Eosinphils 0.3 thou/uL (0.0-0.7); #Lymphocytes 1.3 thou/uL (1.20-3.40); #Monocytes 0.9 thou/uL (0.11-0.59); %Basophils 0.2 % (0.0-1.0); %Eosinophils 3.9 % (0.0-10.0); %Lymphocytes 15.4 % (21.0-51.0); %Monocytes 9.9 % (0.0-10.0); %Neutrophils 70.6 % (42.0-75.0); Hemoglobin 9.2 g/dL (14.0-18.0); Mean Corpuscular HGB CONC 31.5 g/dL (32.0-36.0); Mean Corpuscular Hemoglobin 28.1 pg (27.0-31.0); Mean Corpuscular Volume 89.2 fL (78.0-98.0); Mean Platelet Volume 8.1 fL (7.4-10.4); Platelet Count 197 thou/uL (130-400); Red Blood Cell (RBC) Count 3.28 mill/uL (4.70-6.10); White Blood Cell (WBC) Count 8.5 thou/uL (4.8-10.8)
[2019-09-23 05:18] LABS: Anion Gap 12 mmol/L (10-20); BUN (Urea Nitrogen) 23 mg/dL (8.4-25.7); Calc. Creatinine Clearance 46 mL/min (70-130); Carbon Dioxide 24 mmol/L (23-31); Chloride 107 mmol/L (98-107); Estimated GFR-MDRD 47; Potassium 3.4 mmol/L (3.5-5.1); Sodium 140 mmol/L (136-145)
[2019-09-23 05:19] LABS: Calcium 8.1 mg/dL (7.8-10.44); Glucose 103 mg/dL (83-110)
[2019-09-23] MEDS: Mometasone/Formoterol 120 PUFF INHALER INH SCH ×2 (07:06→18:34)
--- NOTE | 2019-09-23 08:36 | PDOC.HOSPP ---
- Subjective Encounter Date: 09/23/19 Encounter Time: 12:00 Subjective: Patient with continued pain in RLE with ambulation. Getting up with boot and rolling walker with help from PT. No more chest pain. Patient had some bradycardia that was asymptomatic this AM - Objective Vital Signs & Weight: Vital Signs (12 hours) Temp Pulse Resp BP Pulse Ox 09/23/19 07:57 98.8 F 50 L 16 141/65 H 95 09/23/19 04:00 97.3 F L 52 L 16 122/56 L 98 Weight Admit Weight 180 lb Weight 184 lb I&O: 09/22/19 09/23/19 09/24/19 06:59 06:59 06:59 Intake Total 500 Output Total 350 Balance 150 Result Diagrams: 09/23/19 04:36 09/23/19 04:36 Hospitalist ROS - Review of Systems Constitutional: denies: fever, chills Respiratory: denies: cough, shortness of breath Cardiovascular: denies: chest pain, palpitations, orthopnea Gastrointestinal: denies: nausea, vomiting, abdominal pain Musculoskeletal: reports: leg pain - Medication Medications: Active Medications Generic Name Dose Route Start Last Admin Trade Name Freq PRN Reason Stop Dose Admin Hydrocodone Bitart/Acetaminophen 1 tab 09/19/19 14:08 09/22/19 13:39 [place] 7.5/325 PO 1 tab Q4H PRN Administration Mild Pain (1-3) Hydrocodone Bitart/Acetaminophen 2 tab 09/19/19 14:08 09/23/19 00:20 [place] 7.5/325 PO 2 tab Q4H PRN Administration Moderate Pain (4-6) Allopurinol 100 mg 09/21/19 09:00 09/22/19 10:34 Zyloprim PO 100 mg DAILY PRISCILLA Administration Amiodarone HCl 200 mg 09/20/19 21:00 09/22/19 20:58 Cordarone PO 200 mg BID PRISCILLA Administration Apixaban 10 mg 09/19/19 21:00 09/22/19 20:58 Eliquis PO 10 mg BID PRISCILLA Administration Betamethasone Valerate 0 ml 09/20/19 21:00 09/22/19 21:25 Betamethasone Valerate TOP Not Given BID PRISCILLA Famotidine 20 mg 09/22/19 09:00 09/22/19 10:33 Pepcid PO 20 mg DAILY PRISCILLA Administration Furosemide 20 mg 09/21/19 09:00 09/22/19 10:34 Lasix PO 20 mg DAILY PRISCILLA Administration Lorazepam 0.5 mg 09/20/19 00:36 09/20/19 00:45 Ativan PO 0.5 mg Q4H PRN Administration Anxiety Lorazepam 0.5 mg 09/20/19 19:41 09/21/19 11:17 Ativan SLOW IVP 0.5 mg Q6H PRN Administration Anxiety/Agitation Losartan Potassium 25 mg 09/21/19 21:00 09/22/19 20:58 Cozaar PO 25 mg BID PRISCILLA Administration Metoprolol Tartrate 100 mg 09/20/19 21:00 09/22/19 20:58 Lopressor PO 100 mg BID PRISCILLA Administration Mometasone Furoate/Formoterol Fumar 1 puff 09/20/19 18:30 09/23/19 07:06 Dulera 200 Mcg/5 Mcg Inhaler INH 1 puff BID-RT PRISCILLA Administration Morphine Sulfate 4 mg 09/19/19 14:08 09/21/19 11:18 Morphine SLOW IVP 4 mg Q4H PRN Administration Severe Pain (7-10) Nitroglycerin 0.4 mg 09/19/19 20:00 09/19/19 20:19 Nitrostat PO 0.4 mg Q5MIN PRN Administration Chest Pain Tamsulosin HCl 0.4 mg 09/21/19 09:00 09/22/19 10:34 Flomax PO 0.4 mg DAILY PRISCILLA Administration Temazepam 30 mg 09/20/19 09:01 09/22/19 20:58 Restoril PO 30 mg HS PRN Administration Insomnia - Exam General Appearance: NAD Eye: anicteric sclera ENT: moist mucosa Heart: RRR, no murmur, no gallops, no rubs Respiratory: CTAB, no wheezes, no rales, no ronchi Gastrointestinal: soft, non-tender, non-distended, normal bowel sounds Psychiatric: normal affect, normal behavior, A&O x 3 Hosp A/P (1) Bilateral pulmonary embolism Code(s): I26.99 - OTHER PULMONARY EMBOLISM WITHOUT ACUTE COR PULMONALE Status : Acute (2) Right leg DVT Code(s): I82.401 - ACUTE EMBOLISM AND [place] UNSP DEEP VEINS OF R LOW EXTREM Status: Acute (3) Tibia/fibula fracture, shaft Code(s): S82.209A - UNSP FRACTURE OF SHAFT OF UNSP TIBIA, INIT FOR CLOS FX; S82.409A - UNSP FRACTURE OF SHAFT OF UNSP FIBULA, INIT FOR CLOS FX Status: Acute Qualifiers: Encounter type: subsequent encounter Laterality: right (4) COPD (chronic obstructive pulmonary disease) Status: Chronic (5) CAD (coronary artery disease) Code(s): I25.10 - ATHSCL HEART DISEASE OF [place] CORONARY ARTERY W/O ANG PCTRS Status: Chronic (6) Hypertension Code(s): I10 - ESSENTIAL (PRIMARY) HYPERTENSION Status: Chronic (7) History of atrial fibrillation Code(s): Z86.79 - PERSONAL HISTORY OF OTHER DISEASES OF THE CIRCULATORY SYSTEM Status: Chronic (8) Anemia Code(s): D64.9 - ANEMIA, UNSPECIFIED Status: Acute Qualifiers: Anemia type: unspecified type Qualified Code(s): D64.9 - Anemia, unspecified - Plan PT/OT, out of bed/ambulate On Eliquis, will need to decrease dose to 5mg BID on September 27 Ortho has made PT recommendations, new fib fracture is stable, will need rehab Chest pain due to PE resolved Intermittent bradycardia, on Amiodarone looks like intro dose and high dose metoprolol Will switch to maintainence dose of Amiodarone and decrease Metoprolol Ready for discharge to rehab/SNF
[2019-09-23] MEDS: Amiodarone 200 MG TAB PO SCH (08:39)
[2019-09-23] MEDS: Metoprolol Tartrate 100 MG TAB PO SCH (08:40)
[2019-09-23] MEDS: Betamethasone Val 0.1% Lotion 60 ML BOT TOP SCH ×2 (08:46→20:35)
[2019-09-23] MEDS: Apixaban 5 MG TAB PO SCH ×2 (08:47→20:07)
[2019-09-23] MEDS: Famotidine 20 MG TAB PO SCH (08:47)
[2019-09-23] MEDS: Tamsulosin HCl 0.4 MG CAP PO SCH (08:47)
[2019-09-23] MEDS: Losartan 25 MG TAB PO SCH ×2 (08:47→20:07)
[2019-09-23] MEDS: Allopurinol 100 MG TAB PO SCH (08:48)
[2019-09-23] MEDS: Furosemide 20 MG TAB PO SCH (08:50)
[2019-09-23] MEDS: Temazepam 15 MG CAP PO PRN (20:07)
[2019-09-23] MEDS: Metoprolol Tartrate 50 MG TAB PO SCH (20:08)
[2019-09-24] MEDS: Mometasone/Formoterol 120 PUFF INHALER INH SCH ×2 (06:54→18:43)
--- NOTE | 2019-09-24 08:05 | PDOC.HOSPP ---
- Subjective Encounter Date: 09/24/19 Encounter Time: 14:20 Subjective: Patient with some confusion this morning, still a little confused now but much better. Nurse communicated concern about him sundowning last night. Pain in leg a little better. Awaiting SNF placement. - Objective Vital Signs & Weight: Vital Signs (12 hours) Temp Pulse Resp BP Pulse Ox 09/24/19 03:40 97.7 F 53 L 20 147/65 H 95 09/23/19 23:57 107/66 Weight Admit Weight 180 lb Weight 183 lb 9.6 oz I&O: 09/23/19 09/24/19 09/25/19 06:59 06:59 06:59 Intake Total 500 720 Output Total 350 450 Balance 150 270 Result Diagrams: 09/23/19 04:36 09/23/19 04:36 Hospitalist ROS - Review of Systems Constitutional: denies: fever, chills Respiratory: denies: cough, shortness of breath Cardiovascular: denies: chest pain, palpitations, orthopnea Gastrointestinal: denies: nausea, vomiting, abdominal pain Musculoskeletal: reports: leg pain Neurological: reports: confusion - Medication Medications: Active Medications Generic Name Dose Route Start Last Admin Trade Name Freq PRN Reason Stop Dose Admin Hydrocodone Bitart/Acetaminophen 1 tab 09/19/19 14:08 09/22/19 13:39 [place] 7.5/325 PO 1 tab Q4H PRN Administration Mild Pain (1-3) Hydrocodone Bitart/Acetaminophen 2 tab 09/19/19 14:08 09/23/19 18:04 [place] 7.5/325 PO 2 tab Q4H PRN Administration Moderate Pain (4-6) Allopurinol 100 mg 09/21/19 09:00 09/23/19 08:48 Zyloprim PO Not Given DAILY PRISCILLA Apixaban 10 mg 09/19/19 21:00 09/23/19 20:07 Eliquis PO 10 mg BID PRISCILLA Administration Betamethasone Valerate 0 ml 09/20/19 21:00 09/23/19 20:35 Betamethasone Valerate TOP Not Given BID PRISCILLA Famotidine 20 mg 09/22/19 09:00 09/23/19 08:47 Pepcid PO 20 mg DAILY PRISCILLA Administration Furosemide 20 mg 09/21/19 09:00 09/23/19 08:50 Lasix PO 20 mg DAILY PRISCILLA Administration Lorazepam 0.5 mg 09/20/19 00:36 09/20/19 00:45 Ativan PO 0.5 mg Q4H PRN Administration Anxiety Lorazepam 0.5 mg 09/20/19 19:41 09/21/19 11:17 Ativan SLOW IVP 0.5 mg Q6H PRN Administration Anxiety/Agitation Losartan Potassium 25 mg 09/21/19 21:00 09/23/19 20:07 Cozaar PO 25 mg BID PRISCILLA Administration Metoprolol Tartrate 50 mg 09/23/19 21:00 09/23/19 20:08 Lopressor PO 50 mg BID PRISCILLA Administration Mometasone Furoate/Formoterol Fumar 1 puff 09/20/19 18:30 09/24/19 06:54 Dulera 200 Mcg/5 Mcg Inhaler INH 1 puff BID-RT PRISCILLA Administration Morphine Sulfate 4 mg 09/19/19 14:08 09/21/19 11:18 Morphine SLOW IVP 4 mg Q4H PRN Administration Severe Pain (7-10) Nitroglycerin 0.4 mg 09/19/19 20:00 09/19/19 20:19 Nitrostat PO 0.4 mg Q5MIN PRN Administration Chest Pain Tamsulosin HCl 0.4 mg 09/21/19 09:00 09/23/19 08:47 Flomax PO 0.4 mg DAILY PRISCILLA Administration Temazepam 30 mg 09/20/19 09:01 09/23/19 20:07 Restoril PO 30 mg HS PRN Administration Insomnia - Exam General Appearance: NAD, awake alert Eye: anicteric sclera ENT: moist mucosa Heart: RRR, no murmur, no gallops, no rubs Respiratory: CTAB, no wheezes, no rales, no ronchi Gastrointestinal: soft, non-tender, non-distended, normal bowel sounds Psychiatric: normal affect, normal behavior Psychiatric - other findings: mild confusion Hosp A/P (1) Bilateral pulmonary embolism Code(s): I26.99 - OTHER PULMONARY EMBOLISM WITHOUT ACUTE COR PULMONALE Status : Acute (2) Right leg DVT Code(s): I82.401 - ACUTE EMBOLISM AND [place] UNSP DEEP VEINS OF R LOW EXTREM Status: Acute (3) Tibia/fibula fracture, shaft Code(s): S82.209A - UNSP FRACTURE OF SHAFT OF UNSP TIBIA, INIT FOR CLOS FX; S82.409A - UNSP FRACTURE OF SHAFT OF UNSP FIBULA, INIT FOR CLOS FX Status: Acute Qualifiers: Encounter type: subsequent encounter Laterality: right (4) COPD (chronic obstructive pulmonary disease) Status: Chronic (5) CAD (coronary artery disease) Code(s): I25.10 - ATHSCL HEART DISEASE OF [place] CORONARY ARTERY W/O ANG PCTRS Status: Chronic (6) Hypertension Code(s): I10 - ESSENTIAL (PRIMARY) HYPERTENSION Status: Chronic (7) History of atrial fibrillation Code(s): Z86.79 - PERSONAL HISTORY OF OTHER DISEASES OF THE CIRCULATORY SYSTEM Status: Chronic (8) Anemia Code(s): D64.9 - ANEMIA, UNSPECIFIED Status: Acute Qualifiers: Anemia type: unspecified type Qualified Code(s): D64.9 - Anemia, unspecified (9) Acute encephalopathy Code(s): G93.40 - ENCEPHALOPATHY, UNSPECIFIED Status: Acute Plan: no evidence infection or other source, likely hospital aquired, will try some Seroquel at night - 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 Seroquel for hospital acquired confusion/delirium Ready for discharge to rehab/SNF
[2019-09-24] MEDS: Amiodarone 200 MG TAB PO SCH (08:17)
[2019-09-24] MEDS: Furosemide 20 MG TAB PO SCH (08:17)
[2019-09-24] MEDS: Allopurinol 100 MG TAB PO SCH (08:17)
[2019-09-24] MEDS: Apixaban 5 MG TAB PO SCH ×2 (08:17→20:10)
[2019-09-24] MEDS: Famotidine 20 MG TAB PO SCH (08:17)
[2019-09-24] MEDS: Tamsulosin HCl 0.4 MG CAP PO SCH (08:17)
[2019-09-24] MEDS: Losartan 25 MG TAB PO SCH ×2 (08:17→20:10)
[2019-09-24] MEDS: Metoprolol Tartrate 50 MG TAB PO SCH (08:19)
[2019-09-24] MEDS: Betamethasone Val 0.1% Lotion 60 ML BOT TOP SCH ×2 (08:20→20:10)
[2019-09-25] MEDS: HYDROcodone/Acetaminophen 7.5/325 mg Tablet PO PRN ×3 (02:46→22:54)
[2019-09-25] MEDS ORDERED: Acetaminophen 325 MG TAB PO PRN (04:34)
[2019-09-25] MEDS ORDERED: hydrALAZINE 20 MG/ML VIAL SLOW IVP PRN (04:34)
[2019-09-25] MEDS: Mometasone/Formoterol 120 PUFF INHALER INH SCH ×2 (06:41→18:41)
[2019-09-25] MEDS ORDERED: Potassium Chloride 20 MEQ TAB PO SCH (08:00)
[2019-09-25] MEDS: Allopurinol 100 MG TAB PO SCH (08:44)
[2019-09-25] MEDS: Apixaban 5 MG TAB PO SCH ×2 (08:45→22:01)
[2019-09-25] MEDS: Amiodarone 200 MG TAB PO SCH (08:45)
[2019-09-25] MEDS: Famotidine 20 MG TAB PO SCH (08:47)
[2019-09-25] MEDS: Tamsulosin HCl 0.4 MG CAP PO SCH (08:47)
[2019-09-25] MEDS: Losartan 25 MG TAB PO SCH ×2 (08:47→22:01)
[2019-09-25] MEDS: Furosemide 20 MG TAB PO SCH (08:47)
[2019-09-25] MEDS: Betamethasone Val 0.1% Lotion 60 ML BOT TOP SCH (11:21)
--- NOTE | 2019-09-25 12:55 | PDOC.HOSPP ---
- Subjective Encounter Date: 09/25/19 Encounter Time: 11:50 Subjective: Patient's confusion a bit better. Still didn't sleep well last night. Pain in leg much better, but sore on heal hurting a lot since just got wound care. - Objective Vital Signs & Weight: Vital Signs (12 hours) Temp Pulse Resp BP Pulse Ox 09/25/19 11:10 97.4 F L 64 18 156/69 H 97 09/25/19 07:25 97 09/25/19 07:21 97.2 F L 57 L 18 156/67 H 97 09/25/19 04:50 160/68 H 09/25/19 04:00 98.1 F 71 18 184/79 H 94 L Weight Admit Weight 180 lb Weight 184 lb 3.2 oz I&O: 09/24/19 09/25/19 09/26/19 06:59 06:59 06:59 Intake Total 720 550 Output Total 450 1225 Balance 270 -675 Result Diagrams: 09/23/19 04:36 09/23/19 04:36 Hospitalist ROS - Review of Systems Constitutional: denies: fever, chills Respiratory: denies: cough, shortness of breath Cardiovascular: denies: chest pain, palpitations, orthopnea Gastrointestinal: denies: nausea, vomiting, abdominal pain Musculoskeletal: reports: leg pain, foot pain Skin: reports: lesions - Medication Medications: Active Medications Generic Name Dose Route Start Last Admin Trade Name Freq PRN Reason Stop Dose Admin Acetaminophen 650 mg 09/25/19 04:34 09/25/19 04:48 Tylenol PO 650 mg Q4H PRN Administration Headache/Fever or Mild Pain Hydrocodone Bitart/Acetaminophen 1 tab 09/19/19 14:08 09/25/19 12:47 [place] 7.5/325 PO 1 tab Q4H PRN Administration Mild Pain (1-3) Hydrocodone Bitart/Acetaminophen 2 tab 09/19/19 14:08 09/23/19 18:04 [place] 7.5/325 PO 2 tab Q4H PRN Administration Moderate Pain (4-6) Allopurinol 100 mg 09/21/19 09:00 09/25/19 08:44 Zyloprim PO 100 mg DAILY PRISCILLA Administration Amiodarone HCl 200 mg 09/24/19 09:00 09/25/19 08:45 Cordarone PO 200 mg DAILY PRISCILLA Administration Apixaban 10 mg 09/19/19 21:00 09/25/19 08:45 Eliquis PO 10 mg BID PRISCILLA Administration Betamethasone Valerate 0 ml 09/20/19 21:00 09/25/19 11:21 Betamethasone Valerate TOP Not Given BID PRISCILLA Famotidine 20 mg 09/22/19 09:00 09/25/19 08:47 Pepcid PO 20 mg DAILY PRISCILLA Administration Furosemide 20 mg 09/21/19 09:00 09/25/19 08:47 Lasix PO 20 mg DAILY PRISCILLA Administration Lorazepam 0.5 mg 09/20/19 00:36 09/20/19 00:45 Ativan PO 0.5 mg Q4H PRN Administration Anxiety Lorazepam 0.5 mg 09/20/19 19:41 09/21/19 11:17 Ativan SLOW IVP 0.5 mg Q6H PRN Administration Anxiety/Agitation Losartan Potassium 25 mg 09/21/19 21:00 09/25/19 08:47 Cozaar PO 25 mg BID PRISCILLA Administration Mometasone Furoate/Formoterol Fumar 1 puff 09/20/19 18:30 09/25/19 06:41 Dulera 200 Mcg/5 Mcg Inhaler INH 1 puff BID-RT PRISCILLA Administration Morphine Sulfate 4 mg 09/19/19 14:08 09/21/19 11:18 Morphine SLOW IVP 4 mg Q4H PRN Administration Severe Pain (7-10) Nitroglycerin 0.4 mg 09/19/19 20:00 09/19/19 20:19 Nitrostat PO 0.4 mg Q5MIN PRN Administration Chest Pain Polyethylene Glycol 17 gm 09/22/19 12:20 09/25/19 04:52 Miralax PO 17 gm DAILYPRN PRN Administration Constipation Quetiapine Fumarate 25 mg 09/24/19 21:00 09/24/19 20:09 Seroquel PO 25 mg HS PRISCILLA Administration Sodium Chloride 10 ml 09/18/19 23:05 09/25/19 08:47 Flush - Normal Saline IVF 10 ml Q12HR PRN Administration Saline Flush Tamsulosin HCl 0.4 mg 09/21/19 09:00 09/25/19 08:47 Flomax PO 0.4 mg DAILY PRISCILLA Administration Temazepam 30 mg 09/20/19 09:01 09/23/19 20:07 Restoril PO 30 mg HS PRN Administration Insomnia - Exam General Appearance: NAD Eye: anicteric sclera ENT: moist mucosa Heart: RRR, no murmur, no gallops, no rubs Respiratory: CTAB, no wheezes, no rales, no ronchi Gastrointestinal: soft, non-tender, non-distended, normal bowel sounds Skin - other findings: wound on heel with dressing c/d/i Musculoskeletal: normal tone, normal strength Psychiatric: normal affect, normal behavior, oriented to person, oriented to place, oriented to time Psychiatric - other findings: slow responses Hosp A/P (1) Bilateral pulmonary embolism Code(s): I26.99 - OTHER PULMONARY EMBOLISM WITHOUT ACUTE COR PULMONALE Status : Acute (2) Right leg DVT Code(s): I82.401 - ACUTE EMBOLISM AND THOMBOS UNSP DEEP VEINS OF R LOW EXTREM Status: Acute (3) Tibia/fibula fracture, shaft Code(s): S82.209A - UNSP FRACTURE OF SHAFT OF UNSP TIBIA, INIT FOR CLOS FX; S82.409A - UNSP FRACTURE OF SHAFT OF UNSP FIBULA, INIT FOR CLOS FX Status: Acute Qualifiers: Encounter type: subsequent encounter Laterality: right (4) COPD (chronic obstructive pulmonary disease) Status: Chronic (5) CAD (coronary artery disease) Code(s): I25.10 - ATHSCL HEART DISEASE OF [place] CORONARY ARTERY W/O ANG PCTRS Status: Chronic (6) Hypertension Code(s): I10 - ESSENTIAL (PRIMARY) HYPERTENSION Status: Chronic (7) History of atrial fibrillation Code(s): Z86.79 - PERSONAL HISTORY OF OTHER DISEASES OF THE CIRCULATORY SYSTEM Status: Chronic (8) Anemia Code(s): D64.9 - ANEMIA, UNSPECIFIED Status: Acute Qualifiers: Anemia type: unspecified type Qualified Code(s): D64.9 - Anemia, unspecified (9) Acute encephalopathy Code(s): G93.40 - ENCEPHALOPATHY, UNSPECIFIED Status: Acute - Plan On Eliquis, will need to decrease dose to 5mg BID on September 27 Ortho has made PT recommendations, new fib fracture is stable, will need rehab Chest pain due to PE resolved Intermittent bradycardia, on Amiodarone looks like intro dose and high dose metoprolol Switched to maintainence dose of Amiodarone and decreased Metoprolol, still quite slow so will d/c metoprolol all together and see if Amiodarone adequate for control of afib- pulse rate improved Seroquel for hospital acquired confusion/delirium Ready for discharge to rehab/SNF
[2019-09-25] MEDS ORDERED: Mag-Al 1200 mg/1200 mg/30 ML UDCUP PO PRN (21:52)
[2019-09-26] MEDS: Morphine 4 MG/ML VIAL SLOW IVP PRN (01:42)
[2019-09-26 04:52] LABS: #Eosinphils 0.2 thou/uL (0.0-0.7); #Lymphocytes 1.2 thou/uL (1.20-3.40); #Monocytes 0.6 thou/uL (0.11-0.59); %Basophils 0.3 % (0.0-1.0); %Eosinophils 3.8 % (0.0-10.0); %Monocytes 9.7 % (0.0-10.0); %Neutrophils 66.3 % (42.0-75.0); Hemoglobin 10.1 g/dL (14.0-18.0); Mean Corpuscular HGB CONC 31.5 g/dL (32.0-36.0); Mean Corpuscular Hemoglobin 27.4 pg (27.0-31.0); Mean Corpuscular Volume 86.8 fL (78.0-98.0); Mean Platelet Volume 8.6 fL (7.4-10.4); Platelet Count 214 thou/uL (130-400)
[2019-09-26 05:14] LABS: Anion Gap 14 mmol/L (10-20); BUN (Urea Nitrogen) 21 mg/dL (8.4-25.7); Calc. Creatinine Clearance 50 mL/min (70-130); Calcium 8.8 mg/dL (7.8-10.44); Carbon Dioxide 24 mmol/L (23-31); Chloride 107 mmol/L (98-107); Estimated GFR-MDRD 53; Glucose 105 mg/dL (83-110); Potassium 4.1 mmol/L (3.5-5.1); Sodium 141 mmol/L (136-145)
[2019-09-26] MEDS: Mometasone/Formoterol 120 PUFF INHALER INH SCH ×2 (07:06→18:29)
--- NOTE | 2019-09-26 08:13 | PDOC.HOSPP ---
- Subjective Encounter Date: 09/26/19 Encounter Time: 10:40 Subjective: Patient feeling a bit less confused and slow. Pain in leg and foot better. Having a bit of coughing after swallowing. - Objective Vital Signs & Weight: Vital Signs (12 hours) Temp Pulse Resp BP Pulse Ox 09/26/19 07:38 97.5 F L 72 18 140/63 98 09/26/19 04:00 97.6 F 66 17 134/64 94 L 09/26/19 01:40 76 129/60 95 Weight Admit Weight 180 lb Weight 182 lb 6.4 oz I&O: 09/25/19 09/26/19 09/27/19 06:59 06:59 06:59 Intake Total 550 550 Output Total 1225 625 Balance -675 -75 Result Diagrams: 09/26/19 04:19 09/26/19 04:19 Hospitalist ROS - Review of Systems Constitutional: denies: fever, chills Respiratory: reports: cough. denies: shortness of breath Cardiovascular: denies: chest pain, palpitations, orthopnea Gastrointestinal: denies: nausea, vomiting, abdominal pain Musculoskeletal: reports: leg pain, foot pain - Medication Medications: Active Medications Generic Name Dose Route Start Last Admin Trade Name Freq PRN Reason Stop Dose Admin Acetaminophen 650 mg 09/25/19 04:34 09/25/19 04:48 Tylenol PO 650 mg Q4H PRN Administration Headache/Fever or Mild Pain Hydrocodone Bitart/Acetaminophen 1 tab 09/19/19 14:08 09/25/19 22:54 [place] 7.5/325 PO 1 tab Q4H PRN Administration Mild Pain (1-3) Hydrocodone Bitart/Acetaminophen 2 tab 09/19/19 14:08 09/23/19 18:04 [place] 7.5/325 PO 2 tab Q4H PRN Administration Moderate Pain (4-6) Allopurinol 100 mg 09/21/19 09:00 09/25/19 08:44 Zyloprim PO 100 mg DAILY PRISCILLA Administration Amiodarone HCl 200 mg 09/24/19 09:00 09/25/19 08:45 Cordarone PO 200 mg DAILY PRISCILLA Administration Apixaban 10 mg 09/19/19 21:00 09/25/19 22:01 Eliquis PO 10 mg BID PRISCILLA Administration Famotidine 20 mg 09/22/19 09:00 09/25/19 08:47 Pepcid PO 20 mg DAILY PRISCILLA Administration Furosemide 20 mg 09/21/19 09:00 09/25/19 08:47 Lasix PO 20 mg DAILY PRISCILLA Administration Lorazepam 0.5 mg 09/20/19 00:36 09/20/19 00:45 Ativan PO 0.5 mg Q4H PRN Administration Anxiety Lorazepam 0.5 mg 09/20/19 19:41 09/21/19 11:17 Ativan SLOW IVP 0.5 mg Q6H PRN Administration Anxiety/Agitation Losartan Potassium 25 mg 09/21/19 21:00 09/25/19 22:01 Cozaar PO 25 mg BID PRISCILLA Administration Mometasone Furoate/Formoterol Fumar 1 puff 09/20/19 18:30 09/26/19 07:06 Dulera 200 Mcg/5 Mcg Inhaler INH 1 puff BID-RT PRISCILLA Administration Morphine Sulfate 4 mg 09/19/19 14:08 09/26/19 01:42 Morphine SLOW IVP 4 mg Q4H PRN Administration Severe Pain (7-10) Nitroglycerin 0.4 mg 09/19/19 20:00 09/19/19 20:19 Nitrostat PO 0.4 mg Q5MIN PRN Administration Chest Pain Polyethylene Glycol 17 gm 09/22/19 12:20 09/25/19 04:52 Miralax PO 17 gm DAILYPRN PRN Administration Constipation Quetiapine Fumarate 25 mg 09/24/19 21:00 09/25/19 22:01 Seroquel PO 25 mg HS PRISCILLA Administration Sodium Chloride 10 ml 09/18/19 23:05 09/25/19 08:47 Flush - Normal Saline IVF 10 ml Q12HR PRN Administration Saline Flush Tamsulosin HCl 0.4 mg 09/21/19 09:00 09/25/19 08:47 Flomax PO 0.4 mg DAILY PRISCILLA Administration Temazepam 30 mg 09/20/19 09:01 09/23/19 20:07 Restoril PO 30 mg HS PRN Administration Insomnia - Exam General Appearance: NAD, awake alert Eye: anicteric sclera ENT: moist mucosa Heart: RRR, no murmur, no gallops, no rubs Respiratory: CTAB, no wheezes, no rales, no ronchi Gastrointestinal: soft, non-tender, non-distended, normal bowel sounds Extremities: no edema Hosp A/P (1) Bilateral pulmonary embolism Code(s): I26.99 - OTHER PULMONARY EMBOLISM WITHOUT ACUTE COR PULMONALE Status : Acute (2) Right leg DVT Code(s): I82.401 - ACUTE EMBOLISM AND THOMBOS UNSP DEEP VEINS OF R LOW EXTREM Status: Acute (3) Tibia/fibula fracture, shaft Code(s): S82.209A - UNSP FRACTURE OF SHAFT OF UNSP TIBIA, INIT FOR CLOS FX; S82.409A - UNSP FRACTURE OF SHAFT OF UNSP FIBULA, INIT FOR CLOS FX Status: Acute Qualifiers: Encounter type: subsequent encounter Laterality: right (4) COPD (chronic obstructive pulmonary disease) Status: Chronic (5) CAD (coronary artery disease) Code(s): I25.10 - ATHSCL HEART DISEASE OF [place] CORONARY ARTERY W/O ANG PCTRS Status: Chronic (6) Hypertension Code(s): I10 - ESSENTIAL (PRIMARY) HYPERTENSION Status: Chronic (7) History of atrial fibrillation Code(s): Z86.79 - PERSONAL HISTORY OF OTHER DISEASES OF THE CIRCULATORY SYSTEM Status: Chronic (8) Anemia Code(s): D64.9 - ANEMIA, UNSPECIFIED Status: Acute Qualifiers: Anemia type: unspecified type Qualified Code(s): D64.9 - Anemia, unspecified (9) Acute encephalopathy Code(s): G93.40 - ENCEPHALOPATHY, UNSPECIFIED Status: Acute - Plan On Eliquis, will need to decrease dose to 5mg BID on September 27 Ortho has made PT recommendations, new fib fracture is stable, will need rehab/ SNF Chest pain due to PE resolved Intermittent bradycardia, on Amiodarone looks like intro dose and high dose metoprolol --> Switched to maintainence dose of Amiodarone and decreased Metoprolol --> Still quite slow so will d/c metoprolol all together and see if Amiodarone adequate for control of afib--> 09/25/2019 pulse rate improved Seroquel for hospital acquired confusion/delirium Cough after swallowing, have speech therapy evaluate Ready for discharge to rehab/SNF
[2019-09-26] MEDS: Allopurinol 100 MG TAB PO SCH ×2 (09:50→09:55)
[2019-09-26] MEDS: Amiodarone 200 MG TAB PO SCH (09:50)
[2019-09-26] MEDS: Apixaban 5 MG TAB PO SCH ×2 (09:50→20:08)
[2019-09-26] MEDS: Losartan 25 MG TAB PO SCH ×2 (09:51→20:09)
[2019-09-26] MEDS: Furosemide 20 MG TAB PO SCH (09:51)
[2019-09-26] MEDS: Famotidine 20 MG TAB PO SCH (09:51)
[2019-09-26] MEDS: Tamsulosin HCl 0.4 MG CAP PO SCH (09:51)
[2019-09-26 12:51] VITALS: BMI 28.5
[2019-09-26] MEDS: HYDROcodone/Acetaminophen 7.5/325 mg Tablet PO PRN ×2 (15:56→20:09)
[2019-09-27] MEDS: Mometasone/Formoterol 120 PUFF INHALER INH SCH (07:04)
[2019-09-27] MEDS: Apixaban 5 MG TAB PO SCH (09:43)
[2019-09-27] MEDS: Furosemide 20 MG TAB PO SCH (09:43)
[2019-09-27] MEDS: Amiodarone 200 MG TAB PO SCH (09:43)
[2019-09-27] MEDS: Famotidine 20 MG TAB PO SCH (09:43)
[2019-09-27] MEDS: Allopurinol 100 MG TAB PO SCH (09:43)
[2019-09-27] MEDS: Losartan 25 MG TAB PO SCH (09:44)
[2019-09-27] MEDS: Tamsulosin HCl 0.4 MG CAP PO SCH (09:44)
--- NOTE | 2019-09-27 10:49 | PDOC.HOSPP ---
- Subjective Encounter Date: 09/27/19 (f/u PE) Encounter Time: 10:47 Subjective: Pt without c/o - notes persistent pain in right heel. 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) Hospitalist ROS - Medication Medications: Active Medications Generic Name Dose Route Start Last Admin Trade Name Freq PRN Reason Stop Dose Admin Acetaminophen 650 mg 09/25/19 04:34 09/25/19 04:48 Tylenol PO 650 mg Q4H PRN Administration Headache/Fever or Mild Pain Hydrocodone Bitart/Acetaminophen 1 tab 09/19/19 14:08 09/26/19 15:56 [place] 7.5/325 PO 1 tab Q4H PRN Administration Mild Pain (1-3) Hydrocodone Bitart/Acetaminophen 2 tab 09/19/19 14:08 09/26/19 20:09 [place] 7.5/325 PO 2 tab Q4H PRN Administration Moderate Pain (4-6) Allopurinol 100 mg 09/21/19 09:00 09/27/19 09:43 Zyloprim PO Not Given DAILY PRISCILLA Amiodarone HCl 200 mg 09/24/19 09:00 09/27/19 09:43 Cordarone PO 200 mg DAILY PRISCILLA Administration Apixaban 10 mg 09/19/19 21:00 09/27/19 09:43 Eliquis PO 10 mg BID PRISCILLA Administration Famotidine 20 mg 09/22/19 09:00 09/27/19 09:43 Pepcid PO 20 mg DAILY PRISCILLA Administration Furosemide 20 mg 09/21/19 09:00 09/27/19 09:43 Lasix PO 20 mg DAILY PRISCILLA Administration Lorazepam 0.5 mg 09/20/19 00:36 09/20/19 00:45 Ativan PO 0.5 mg Q4H PRN Administration Anxiety Lorazepam 0.5 mg 09/20/19 19:41 09/21/19 11:17 Ativan SLOW IVP 0.5 mg Q6H PRN Administration Anxiety/Agitation Losartan Potassium 25 mg 09/21/19 21:00 09/27/19 09:44 Cozaar PO 25 mg BID PRISCILLA Administration Mometasone Furoate/Formoterol Fumar 1 puff 09/20/19 18:30 09/27/19 07:04 Dulera 200 Mcg/5 Mcg Inhaler INH 1 puff BID-RT PRISCILLA Administration Morphine Sulfate 4 mg 09/19/19 14:08 09/26/19 01:42 Morphine SLOW IVP 4 mg Q4H PRN Administration Severe Pain (7-10) Nitroglycerin 0.4 mg 09/19/19 20:00 09/19/19 20:19 Nitrostat PO 0.4 mg Q5MIN PRN Administration Chest Pain Polyethylene Glycol 17 gm 09/22/19 12:20 09/25/19 04:52 Miralax PO 17 gm DAILYPRN PRN Administration Constipation Quetiapine Fumarate 25 mg 09/24/19 21:00 09/26/19 20:08 Seroquel PO 25 mg HS PRISCILLA Administration Sodium Chloride 10 ml 09/18/19 23:05 09/26/19 09:52 Flush - Normal Saline IVF 10 ml Q12HR PRN Administration Saline Flush Tamsulosin HCl 0.4 mg 09/21/19 09:00 09/27/19 09:44 Flomax PO 0.4 mg DAILY PRISCILLA Administration Temazepam 30 mg 09/20/19 09:01 09/23/19 20:07 Restoril PO 30 mg HS PRN Administration Insomnia - Exam General Appearance: NAD Heart: RRR, no murmur Respiratory: CTAB, no wheezes, no rales, no ronchi Gastrointestinal: soft, non-tender, non-distended, normal bowel sounds Extremities: no cyanosis, no clubbing, no edema Extremities - other findings: boot on right foot/ankle Psychiatric: normal affect Hosp A/P (1) Bilateral pulmonary embolism Code(s): I26.99 - OTHER PULMONARY EMBOLISM WITHOUT ACUTE COR PULMONALE Status : Acute (2) Constipation Code(s): K59.00 - CONSTIPATION, UNSPECIFIED Status: Acute Qualifiers: Constipation type: unspecified constipation type Qualified Code(s): K59.00 - Constipation, unspecified (3) Anemia Code(s): D64.9 - ANEMIA, UNSPECIFIED Status: Acute Qualifiers: Anemia type: unspecified type Qualified Code(s): D64.9 - Anemia, unspecified (4) Tibia/fibula fracture, shaft Code(s): S82.209A - UNSP FRACTURE OF SHAFT OF UNSP TIBIA, INIT FOR CLOS FX; S82.409A - UNSP FRACTURE OF SHAFT OF UNSP FIBULA, INIT FOR CLOS FX Status: Acute Qualifiers: Encounter type: subsequent encounter Laterality: right (5) CAD (coronary artery disease) Code(s): I25.10 - ATHSCL HEART DISEASE OF [place] CORONARY ARTERY W/O ANG PCTRS Status: Chronic (6) COPD (chronic obstructive pulmonary disease) Status: Chronic (7) Hypertension Code(s): I10 - ESSENTIAL (PRIMARY) HYPERTENSION Status: Chronic - Plan PE - on eliquis, change to 5 mg BID on 3 Sep as pt will have completed 1 week of 10 mg BID - continue PT/OT - continue managing pain HTN - controlled right heel wound - continue wound care dvt prophy - fully anticoagulated gi prophy - famotidine once daily code status full reviewed plan of care with patient, no questions or further needs at end of eval pt remains at high risk ready for discharge when insurance approved for rehab/snf
[2019-09-27] MEDS: HYDROcodone/Acetaminophen 7.5/325 mg Tablet PO PRN (15:06)
[2019-09-27 15:15] VITALS: BP 124/59; TEMP 97.4
--- NOTE | 2019-09-27 15:15 | DIS ---
DATE OF ADMISSION: 09/18/2019 DATE OF DISCHARGE: 09/27/2019 DISCHARGE DISPOSITION: [facility]. MEDICATIONS: Reconciled at discharge. Discontinued medications are; 1. Metoprolol 100 mg b.i.d. 2. Triamcinolone lotion. 3. Trazodone at bedtime as needed. Medications changed: 1. Amiodarone changed to 200 mg once daily. 2. Losartan changed to 25 mg b.i.d. New medications: 1. Seroquel 25 mg at bedtime. 2. [place] 7.5/325 one or two tablets every 4 hours as needed. Medications to resume: 1. Alprazolam 0.5 mg as needed. 2. Allopurinol 100 mg daily. 3. Furosemide 20 mg daily. 4. Dulera one puff twice daily. 5. Nitroglycerin 0.4 mg sublingual as needed. 6. Omeprazole 20 mg daily. 7. Tamsulosin 0.4 mg daily. 8. Temazepam 30 mg at bedtime. CONSULTANTS: Dr. Barrios of Pulmonology. FINAL DIAGNOSES: 1. Pulmonary embolism and deep venous thrombosis in the right lower extremity. 2. Fibula fracture, right side. 3. Right heel wound. 4. Anemia. SECONDARY DIAGNOSES: 1. Chronic obstructive pulmonary disease. 2. Coronary artery disease. 3. Hypertension. 4. History of atrial fibrillation. 5. Anemia. HISTORY OF PRESENT ILLNESS: Mr. Perez is an 84-year-old male, who presented to the emergency room with severe right leg pain, found to have a fracture, as well as a DVT and PEs based on CT angiogram. He was admitted and started on anticoagulation for this. HOSPITAL COURSE: The patient has been followed while here by the Pulmonology Service, and from a respiratory standpoint has been stable. He was started on Eliquis and needs it for at least 6 months, he has completed 10 mg twice daily for slightly over a week and this is being changed at discharge to 5 mg twice a day. There were no other pulmonology needs. The patient has been monitored on telemetry, maintained a sinus rhythm with a rate in the 70s. His blood pressures have been controlled, his losartan was increased. He has been bradycardic at times here and his home metoprolol was discontinued. Without it, his heart rate is generally in the 70s to 90s. During this hospitalization, the patient noted to have some sundowning, he was started on Seroquel for this and has overall improved. He has remained in the hospital awaiting rehab to work on strengthening as a transition to home. He will need followup with Orthopedics as an outpatient to monitor the right fibular fracture. For the fracture, he has been in a boot. There is large right heel wound that is receiving wound care, and pain has been managed with as needed norco. He will need follow up with Orthopedics as an outpatient. PHYSICAL EXAMINATION: VITAL SIGNS: On day of discharge, please see note on chart. HERNANDEZ FINDINGS AND TEST RESULTS: CBC; 6.0, 10.1, 32.1, and 214. Chemistry; 141, 4.1, 107, 24, 21, 1.3, and 105. Troponin 0.031, 0.046, 0.030. BNP 775. LFTs on admission, T-bili 0.5, AST 35, ALT 36, and alkaline phosphatase 123. Chest x-ray shows linear opacities involving both lung bases in the right mid lung suspicious for subsegmental volume loss, tiny bilateral pleural effusions. Chest x-ray on 09/18, no acute cardiopulmonary process, bibasilar atelectasis and/or scarring. 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 Right tibia and fibula, acute appearing nondisplaced proximal fibular shaft fracture. DIET: Heart healthy. ACTIVITY: Encouraged with PT and OT. CODE STATUS: Full. FOLLOWUP: 1. Follow up is needed with Orthopedics for evaluation and monitoring of the fracture. 2. Follow up is needed with the primary care provider to monitor the treatment of PE and DVT, address any other health needs. Reviewed with the patient this hospitalization, the transfer to a skilled facility as a transition to home, and seek care precautions. No questions or further needs at the end of evaluation. TIME SPENT: Total time coordinating discharge is 40 minutes. Job ID: [id number] [facility]
[2019-09-27] MEDS ORDERED: Apixaban 5 MG TAB PO SCH (21:00)
--- NOTE | 2019-09-30 01:10 | PQF ---
KRISTOPHER CASTELLANOS DENA [id number] [facility]256 [id number] CLINICAL DOCUMENTATION CLARIFICATION FORM: POST DISCHARGE Addendum to original discharge summary date: ____ Late entry note date: __ DATE: 09/30/2019 ATTN: Sahara Taylor Please exercise your independent, professional judgment in responding to the clarification form. Clinical indicators are provided on the bottom of this form for your review Please check appropriate box(s): [ ] DVT/PE as a complication of recent surgery [ ] DVT/PE not a complication of recent surgery [ ] Other diagnosis [ XX ] Unable to determine CLINICAL INDICATORS - SIGNS / SYMPTOMS / LABS ED Notes 09/18 "worsening right leg pain, chest pain and SOB" HP 09/18 "Nailing of right tibia and irrigation/debridement on 08/14/2019" ED Notes 09/18 "right Tib Fib fracture over a month ago,s/p ORIF" HP 09/18 "venous doppler which revealed DVT involving right lower leg" HP 09/18 "CT of chest done demonstrated bilateral PEs" RISK FACTORS ED Notes 09/18-Hx of leg trauma ED Notes 09/18-s/p ORIF ED Notes 09/18-HTN HP 09/18-Afib HP 09/18-Former Smoker TREATMENT: Collected 09/18-Chest Xray Collected 09/18-Vascular ultrasound PN 09/27-PT/OT MAR 09/18-Morphine 4mg IV DEC 04-Aspirin 81mg Oral DEC 04-Eliquis 10mg Oral (This form is maintained as a part of the permanent medical record) 2014 [employer]. All Rights Reserved [email or web address] [not [email or web address]] [email or web address]
== END 2019-09-27 17:00 | DRG 299 ==
LOC: ERS 16:54 → 2NO 19:40
PROVIDERS: ADMIT Hospitalist; ATTEND Hospitalist
PROC: 3E02340 Introduction of Influenza Vaccine into Muscle, Percutaneous Approach (ICD-10-PCS; principal; 2019-09-19)
PROC: 3E0234Z Introduction of Serum, Toxoid and Vaccine into Muscle, Percutaneous Approach (ICD-10-PCS; 2019-09-19)
DX: I82.411 Acute embolism and thrombosis of right femoral vein (principal); I26.99 Other pulmonary embolism without acute cor pulmonale; S82.201A Unspecified fracture of shaft of right tibia, initial encounter for closed fracture; J98.11 Atelectasis; G93.40 Encephalopathy, unspecified; Z23 Encounter for immunization; J44.9 Chronic obstructive pulmonary disease, unspecified; I82.491 Acute embolism and thrombosis of other specified deep vein of right lower extremity; I10 Essential (primary) hypertension; I48.91 Unspecified atrial fibrillation; I44.0 Atrioventricular block, first degree; I45.10 Unspecified right bundle-branch block; K59.00 Constipation, unspecified; I25.10 Atherosclerotic heart disease of native coronary artery without angina pectoris; D64.9 Anemia, unspecified; S82.401A Unspecified fracture of shaft of right fibula, initial encounter for closed fracture; X58.XXXA Exposure to other specified factors, initial encounter; S91.301A Unspecified open wound, right foot, initial encounter; R00.1 Bradycardia, unspecified; Z95.5 Presence of coronary angioplasty implant and graft; Z95.1 Presence of aortocoronary bypass graft; Z79.02 Long term (current) use of antithrombotics/antiplatelets; Z79.51 Long term (current) use of inhaled steroids; Z79.899 Other long term (current) drug therapy; Z87.891 Personal history of nicotine dependence
CPT/HCPCS: 36415; 71045; 71275; 80048; 80053; 82550; 82553; 83735; 83880; 84484; 85025; 93005; 93010; 94664; 94760; 96361; 96372; 96374; 96376; J1650; J1885; J2060; J2270; Q0162; Q9967; S0028